=== PATIENT | male | born 2005 | race Caucasian/White ===

== ENCOUNTER 2024-02-18 15:30 | Outpatient (RCR) | payer BC, SELFPAY | END 2024-05-04 14:54 | disposition home or self-care (01) | PROVIDERS: PCP Family Medicine; Visit Provider Family Medicine | DX: M54.6 Pain in thoracic spine (principal); Z51.89 Encounter for other specified aftercare | CPT/HCPCS: 97032; 97110; 97140; 97161 ==

== ENCOUNTER 2025-02-14 07:48 | Outpatient (CLI) | payer BC, OTHER, SELFPAY ==
--- NOTE | 2025-02-14 08:15 | CRLHL7_ITS ---
For Patients: As a result of the Century Cures Act, medical imaging exams and procedure reports are released immediately into your electronic medical record. You may view this report before your referring provider. If you have questions, please contact your health care provider. Indication: Mid back pain. Technique: Multiplanar multisequence noncontrast MR images of the thoracic spine. Comparison: None. Findings: The thoracic kyphosis is preserved. [id number] chronic T8 vertebral body anterior wedging. Mild chronic T9 and T10 vertebral body anterior wedging. No acute fracture or spondylolisthesis. No T1 hypointense lesions or marrow edema. Nonreactive Schmorl`s nodes in the mid to lower thoracic spine. The thoracic cord is normal in signal intensity. Mild disc degeneration from T8-9 through T10-11. Shallow disc bulge slightly indents the cord and minimally narrows the spinal canal at T8-9. No spinal canal or neural foraminal stenosis. Impression: 1. Mild thoracic spondylosis without spinal canal or neural foraminal stenosis. 2. Nonreactive Schmorl`s nodes in the mid to lower thoracic spine. 3. Chronic anterior wedging of the T8 through T10 vertebral bodies. Dictated by Blayne Beavers MD @ 02/14/2025 6:17:55 PM (Electronically Signed)
== END 2025-02-14 07:49 | disposition home or self-care (01) ==
LOC: MRI 07:49
PROVIDERS: PCP Family Medicine; Visit Provider Family Medicine
DX: M47.894 Other spondylosis, thoracic region (principal); M51.44 Schmorl's nodes, thoracic region; S22.000A Wedge compression fracture of unspecified thoracic vertebra, initial encounter for closed fracture
CPT/HCPCS: 72146